=== PATIENT | female | born 1950 | race Caucasian/White ===

== ENCOUNTER 2020-12-15 14:20 | Emergency (ER) | payer MEDICARE, SELFPAY ==
[2020-12-15 14:26] VITALS: BP 151/81; PULSE 94; RESP 20; TEMP 37.2; O2SAT 97
--- NOTE | 2020-12-15 14:46 | ED.WOUNDLAC ---
HPI - Wound/Laceration General Chief Complaint: Wound/Laceration Stated Complaint: wound on leg Time Seen by Provider: 12/15/20 14:35 Source: patient and RN notes reviewed Mode of arrival: ambulatory Limitations: no limitations History of Present Illness HPI narrative: Patient presents today complaining of an infected skin tear to the right lower leg that was sustained on a bed frame approximately 10 days ago. States she has been treating it with Neosporin and Vaseline, but reports it is now warm and red and wanted to come in for evaluation. She has diet-controlled type 2 diabetes. Denies any current pain. She has not been taking any oral medications for symptoms prior to arrival. Denies numbness or tingling in the leg or foot since the injury. Related Data Home Medications Medication Instructions Recorded Confirmed budesonide-formoterol [Symbicort] INHALATION 12/15/20 citalopram mg 12/15/20 esomeprazole magnesium mg 12/15/20 levothyroxine 12/15/20 losartan 12/15/20 metformin mg PO 12/15/20 mycophenolate mofetil PO 12/15/20 simvastatin mg 12/15/20 tiotropium bromide [Spiriva INHALATION 12/15/20 Respimat] Allergies Allergy/AdvReac Type Severity Reaction Status Date / Time No Known Allergies Allergy Unknown Verified 12/15/20 14:24 Review of Systems Review of Systems: Narrative: CONSTITUTIONAL: Denies body aches, fever, chills, or sweats. EYES: Denies visual changes, redness, or discharge. ENT: Denies rhinorrhea, congestion, sore throat, or otalgia. CARDIOVASCULAR: Denies chest pain, palpitations, or edema. RESPIRATORY: Denies cough or dyspnea. GASTROINTESTINAL: Denies abdominal pain, nausea, vomiting, or diarrhea. GENITOURINARY: Denies dysuria or hematuria. SKIN: Denies rash, itching. + Right lower leg wound MUSCULOSKELETAL: Denies back pain, joint pain, or myalgia. NEUROLOGIC: Denies headache, numbness, tingling, or weakness. PSYCH: Denies depression or anxiety. [facility] Past Medical History Medical History (Updated 12/15/20 @ 14:50 by Shanthi Tomas, DIRECTOR OF FUNDRAISING, [place]) COPD (chronic obstructive pulmonary disease) History of acute respiratory failure Hyperlipidemia Hypothyroidism Interstitial pulmonary disease Left bundle branch block Scleroderma Type 2 diabetes mellitus Comments At time of signature, I have reviewed and agree with nursing past medical, surgical, social and family history unless otherwise noted. Please see nursing chart for further information. There is no relevant family history pertinent to the presenting complaint Exam Narrative: Exam Narrative: GENERAL: Well-appearing, well-nourished, and in no acute distress. HEAD: Normocephalic, atraumatic. EYES: EOMI. No redness or drainage. Conjunctivae normal. ENT: Mucous membranes pink and moist. NECK: Normal AROM. CHEST: No respiratory distress. EXTREMITIES: Normal range of motion. No edema. SKIN: Warm, dry, no rash. Capillary refill normal. 7 cm partial-thickness skin tear in a semicircular shape to the anterior right lower leg that is mostly dry. This area is surrounded in erythema very mild edema. Distal sensation intact and capillary refill normal. Pedal pulse normal. Full range of motion of the ankle and knee. No calf tenderness or edema. Increased warmth to the affected area. No active drainage. NEURO: No focal deficits. Alert and oriented x3. Gait steady. PSYCH: Normal affect. No signs of depression or anxiety. Course Vital Signs Vital signs: Vital Signs Temperature 98.9 F 12/15/20 14:26 Pulse Rate 94 12/15/20 14:26 Respiratory Rate 20 12/15/20 14:26 Blood Pressure 151/81 H 12/15/20 14:26 Pulse Oximetry 97 12/15/20 14:26 Temperature 98.9 F 12/15/20 14:26 Pulse Rate 94 12/15/20 14:26 Respiratory Rate 20 12/15/20 14:26 Blood Pressure 151/81 H 12/15/20 14:26 Pulse Oximetry 97 12/15/20 14:26 Reviewed. Pt has been instructed to follow up with her PCP regarding her elevated b
== END 2020-12-15 14:55 | disposition home or self-care (01) ==
PROVIDERS: Emergency Provider Nurse Practitioner; PCP Internal Medicine
DX: L08.9 Local infection of the skin and subcutaneous tissue, unspecified (principal); S81.811A Laceration without foreign body, right lower leg, initial encounter; X58.XXXA Exposure to other specified factors, initial encounter; J44.9 Chronic obstructive pulmonary disease, unspecified; E78.5 Hyperlipidemia, unspecified; E03.9 Hypothyroidism, unspecified; E11.9 Type 2 diabetes mellitus without complications; M34.9 Systemic sclerosis, unspecified
CPT/HCPCS: 99213; G0463

== ENCOUNTER 2021-03-13 15:18 | Emergency (ER) | payer MEDICARE, SELFPAY ==
[2021-03-13 15:35] VITALS: BP 102/54; PULSE 86; RESP 18; O2SAT 97
--- NOTE | 2021-03-13 15:52 | ECG_ITS ---
Measurements Intervals [place] Rate: 85 P: 43 MO: 152 QRS: -48 QRSD: 125 T: 102 QT: 391 QTc: 467 Interpretive Statements SINUS RHYTHM LEFT AXIS DEVIATION LEFT BUNDLE BRANCH BLOCK BASELINE WANDER- I, III, V5-V6 ABNORMAL ECG Electronically Signed On 03-13-2021 19:12:44 CDT by Joshua Ernst D.O.
--- NOTE | 2021-03-13 15:54 | ED.SYNCOPE ---
HPI - Syncope General Chief Complaint: Syncope Stated Complaint: low BP Time Seen by Provider: 03/13/21 15:22 History of Present Illness HPI narrative: 71 yo female w/ h/o scleroderma presents to the ED for syncope and low blood pressure. She reportedly went to urgent care today for concerns about a sore under her tongue and swelling in the submandibular area. While there they noted to her blood pressure to be low. She does report a syncopal episode yesterday. She reports working very hard on cleaning out a house over the past couple of weeks. She says that she may have let herself get dehydrated. No fever, chills, nausea, vomiting. Related Data Home Medications Medication Instructions Recorded Confirmed budesonide-formoterol [Symbicort] 1 puff INHALATION DAILY 12/15/20 12/15/20 citalopram 20 mg PO DAILY 12/15/20 12/15/20 esomeprazole magnesium 40 mg PO DAILY 12/15/20 12/15/20 levothyroxine 88 mcg PO DAILY 12/15/20 12/15/20 losartan 25 mg PO DAILY 12/15/20 12/15/20 metformin 500 mg PO BID 12/15/20 12/15/20 mycophenolate mofetil 2,000 mg PO DAILY 12/15/20 12/15/20 simvastatin 20 mg PO DAILY 12/15/20 12/15/20 tiotropium bromide [Spiriva 1 puff INHALATION DAILY 12/15/20 12/15/20 Respimat] Allergies Allergy/AdvReac Type Severity Reaction Status Date / Time No Known Allergies Allergy Unknown Verified 03/13/21 15:40 Review of Systems Review of Systems: All systems reviewed & are unremarkable except as noted in HPI and below Constitutional: Constitutional: Denies chills, Denies fever(s) and Denies weakness Eyes: Eyes: Reports no additional eye complaints ENT: Denies sore throat Cardiovascular: Cardiovascular: Denies chest pain Respiratory: Respiratory: Denies dyspnea Gastrointestinal: Gastrointestinal: Denies abdominal pain, Denies nausea and Denies vomiting Neurologic: Denies confusion, Reports syncope, Denies headache(s), Denies numbness and Denies weakness PMF Past Medical History Medical History COPD (chronic obstructive pulmonary disease) History of acute respiratory failure Hyperlipidemia Hypothyroidism Interstitial pulmonary disease Left bundle branch block Scleroderma Type 2 diabetes mellitus Social History Social History (Updated 03/13/21 @ 16:40 by Jerome Zambrano MD) Smoking status: Never smoker Exam Const: General: healthy appearing, no acute distress and alert Orientation/consciousness: patient oriented x3 HENMT: Head: normal to inspection Neck: Neck: normal visual inspection and no lymphadenopathy Other: enlarged and tender submandibular gland. Submandibular duct mildly erythematous. Chest: Chest palpation & inspection: no tenderness Resp: Effort & Inspection: normal respiratory effort Auscultation: clear to auscultation bilaterally, no rales, no rhonchi and no wheezes Cardio: Jugular venous distension: no JVD Rate: regular rate Rhythm: regular rhythm Heart sounds: no murmurs GI: Inspection: non-distended GI Palp: Yes Soft to palpation and No Tenderness to palpation present (GI) Skin: General skin exam: normal color Neuro: General: patient oriented x3 and moves all extremities Speech: normal speech Extrem: General: no edema Other: mildly prolonged capillary refill. Psych: Appearance: well kempt Affect: normal affect Course Vital Signs Vital signs: Vital Signs Pulse Rate 86 03/13/21 15:35 Respiratory Rate 18 03/13/21 15:35 Blood Pressure 102/54 L 03/13/21 15:35 Pulse Oximetry 97 03/13/21 15:35 Pulse Rate 78 03/13/21 17:51 Respiratory Rate 20 03/13/21 17:51 Blood Pressure 115/78 03/13/21 17:51 Pulse Oximetry 99 03/13/21 17:51 Procedures Other Procedure Procedure 1: Other Procedure: Sialolithotomy She was given lemon juice to sip. She had some purulent drainage from the left submandibular duct. The gland was then massaged to express the remaining blockag
[2021-03-13 16:15] VITALS: BP 132/60; PULSE 94; RESP 25; O2SAT 96
[2021-03-13 16:16] VITALS: PULSE 91; RESP 18; O2SAT 96
[2021-03-13 16:20] LABS: Basophils Percent Auto 0.2 % (0.2-1.2); Eosinophils Percent Auto 0.2 % (0-4.4); Hematocrit 34.9 % (37.0-47.0); Hemoglobin 10.5 g/dL (12.0-15.0); Immature Granulocyte Absolute 0.07 K/mm3 (0.00-0.031); Immature Granulocyte Percent A 0.5 % (0-0.5); Lymphocytes Absolute Auto 1.16 K/mm3 (0.9-3.2); Lymphocytes Percent Auto 8.8 % (18.3-44.2); Mean Corpuscular HGB Conc 30.1 g/dl (32-36); Mean Corpuscular Hemoglobin 26.8 pg (26-34); Mean Platelet Volume 10.8 fl (7.4-10.4); Monocytes Percent Auto 7.3 % (2.6-8.5); Neutrophils Absolute Auto 10.9 K/mm3 (1.3-6.7); Platelet Count Result 230 k/mm3 (150-375); Red Blood Count 3.92 M/mm3 (4.2-5.4); Red Cell Distribution Width 14.3 % (11.5-14.5); White Blood Count 13.1 K/mm3 (4.5-10.0)
[2021-03-13] MEDS: SODIUM CHLORIDE 0.9% IV 1,000 ML 999 ML IV CONT (16:22)
[2021-03-13 16:29] LABS: Anion Gap 9 mmol/L (8-16); Blood Urea Nitrogen 17 mg/dL (7-17); Calcium 8.4 mg/dL (8.4-10.2); Carbon Dioxide 24 mmol/L (22-30); Chloride 107 mmol/L (98-107); Estimated CRCL calculation 41 ml/min; Estimated Glomerular Filt Rate > 60; Glucose 164 mg/dL (65-105); Potassium 3.9 mmol/L (3.4-5.0); Sodium 140 mmol/L (137-145)
[2021-03-13 16:58] VITALS: BP 126/58; BP 128/59; BP 139/68; PULSE 87; PULSE 88; PULSE 95
--- NOTE | 2021-03-13 17:14 | PC.NURSE ---
ambulated patient to bathroom without difficulty. patient reports no further dizziness of fatigue. states, i feel so much better
[2021-03-13 17:23] LABS: Add Urine Microscopic? YES; Appearance Urine Clear (Clear); Bacteria Urine Trace /hpf; Bilirubin Urine Negative (Negative); Blood Urine Negative (Negative); Color Urine Yellow (Yellow); Glucose Urine UA Negative (Negative); Ketones Urine Negative (Negative); Leukocyte Esterase Ur Trace LEU/UL (Negative); Mucus Urine Rare /lpf; Nitrate Urine Negative (Negative); Protein Urine Negative (Negative); RBC Urine 0-2 /hpf (0-2); Specific Grav Ur 1.012 (1.001-1.035); Squamous Epithelial Cell Urine Occasional /hpf (Few); Urobilinogen Urine Negative mg/dL (<2.0)
[2021-03-13] MEDS: AMOXICILLIN/CLAVULANATE K 875-125 MG TAB 1 TABLET PO (17:45)
[2021-03-13 17:51] VITALS: BP 115/78; PULSE 78; RESP 20; O2SAT 99
== END 2021-03-13 17:53 | disposition home or self-care (01) ==
PROVIDERS: Emergency Provider Emergency Medicine; PCP Internal Medicine
DX: E86.0 Dehydration (principal); K11.5 Sialolithiasis; J44.9 Chronic obstructive pulmonary disease, unspecified; E78.5 Hyperlipidemia, unspecified; E03.9 Hypothyroidism, unspecified; E11.9 Type 2 diabetes mellitus without complications; Z79.84 Long term (current) use of oral hypoglycemic drugs
CPT/HCPCS: 36415; 80048; 81001; 85025; 87077; 87086; 87088; 87186; 93005; 96360; 99284; A9270; J7030

== ENCOUNTER 2024-01-04 08:27 | Emergency (ER) | payer MEDICARE, SELFPAY ==
[2024-01-04 08:35] VITALS: BP 176/72; PULSE 75; RESP 18; TEMP 36.6; O2SAT 96
--- NOTE | 2024-01-04 09:22 | ED.EXTPRO ---
HPI - Extremity Problem General Chief complaint: Extremity Problem,Nontraumatic Stated complaint: left hand pain Time Seen by Provider: 01/04/24 09:07 Source: patient Mode of arrival: ambulatory Limitations: no limitations History of Present Illness HPI Narrative: This is a 73-year-old female that presents to the emergency department for left hand pain. Reports she has had a cyst on the left hand for a while. Over the last 2 days the area has become red and painful. She has not seen a doctor for this before. Denies fevers, decreased ROM or numbness. Related Data Home Medications Medication Instructions Recorded Confirmed budesonide-formoterol HFA 160 1 puff inhalation DAILY 12/15/20 12/15/20 mcg-4.5 mcg/actuation aerosol inhaler (Symbicort) citalopram 20 mg tablet 20 mg PO DAILY 12/15/20 12/15/20 esomeprazole magnesium 40 mg 40 mg PO DAILY 12/15/20 12/15/20 capsule,delayed release levothyroxine 88 mcg tablet 88 mcg PO DAILY 12/15/20 12/15/20 losartan 25 mg tablet 25 mg PO DAILY 12/15/20 12/15/20 metformin 500 mg tablet,extended 500 mg PO BID 12/15/20 12/15/20 release 24 hr mycophenolate mofetil 500 mg tablet 2,000 mg PO DAILY 12/15/20 12/15/20 simvastatin 20 mg tablet 20 mg PO DAILY 12/15/20 12/15/20 tiotropium bromide 2.5 1 puff inhalation DAILY 12/15/20 12/15/20 mcg/actuation mist for inhalation (Spiriva Respimat) Allergies Allergy/AdvReac Type Severity Reaction Status Date / Time No Known Allergies Allergy Unknown Verified 01/04/24 08:28 Review of Systems Review of Systems: CONSTITUTIONAL: Denies fever SKIN: Reports redness MUSCULOSKELETAL: Denies joint pain, or myalgia. NEUROLOGIC: Denies numbness All systems reviewed & are unremarkable except as noted in HPI and below PMFSH Past Medical History Medical History COPD (chronic obstructive pulmonary disease) History of acute respiratory failure Hyperlipidemia Hypothyroidism Interstitial pulmonary disease Left bundle branch block Scleroderma Type 2 diabetes mellitus Social History Social History (Updated 03/13/21 @ 16:40 by Jerome Zambrano MD) Smoking status: Never smoker Exam Narrative: GENERAL: Well-appearing, well-nourished, and in no acute distress. HEAD: Normocephalic, atraumatic. EYES: EOMI. EXTREMITIES: Normal range of motion. Small, mobile cyst on the palmar aspect of the hand with mild overlying redness. No lymphangitic streaking or further edema or erythema of the hand. SKIN: Warm, dry, no rash. NEURO: No focal deficits. Alert and oriented x3. PSYCH: Normal mood and affect Course Course Emergency Course: patient agrees with plan of care Vital Signs Vital signs: Vital Signs Temperature 97.9 F 01/04/24 08:35 Pulse Rate 75 01/04/24 08:35 Respiratory Rate 18 01/04/24 08:35 Blood Pressure 176/72 H 01/04/24 08:35 Pulse Oximetry 96 01/04/24 08:35 Oxygen Delivery Room Air 01/04/24 08:35 Temperature 97.9 F 01/04/24 08:35 Pulse Rate 75 01/04/24 08:35 Respiratory Rate 18 01/04/24 08:35 Blood Pressure 176/72 H 01/04/24 08:35 Pulse Oximetry 96 01/04/24 08:35 Oxygen Delivery Room Air 01/04/24 08:35 MDM - Extremity (Nontraumatic) MDM Narrative Medical decision making narrative: Patient presents to the emergency department for a cyst to the left hand that has been present for some time. Reports over the last couple of days it has become red and painful. She is afebrile and nontoxic appearing. She is neurovascularly intact. There is what on exam seems to be a ganglion cyst that is mildly red and tender to palpation. No lymphangitic streaking or further edema or erythema of the hand. Will be started on scheduled anti-inflammatories and an antibiotic. Will be given follow-up with Hand surgery. She was given warnings to return to the ER Differential Diagnosis Differential diagnosis: Likely cellulitis, s
[2024-01-04] MEDS: KETOROLAC 30 MG/ML VIAL (*BKC) IM (09:48)
== END 2024-01-04 09:59 | disposition home or self-care (01) ==
PROVIDERS: Emergency Provider Physician Assistant; PCP Internal Medicine
DX: L72.9 Follicular cyst of the skin and subcutaneous tissue, unspecified (principal); E78.5 Hyperlipidemia, unspecified; E03.9 Hypothyroidism, unspecified; E11.9 Type 2 diabetes mellitus without complications
CPT/HCPCS: 96372; 99283; J1885

== ENCOUNTER 2024-06-21 15:41 | Emergency (ER) | payer MEDICARE, SELFPAY ==
[2024-06-21 15:44] VITALS: BP 115/63; PULSE 86; RESP 16; TEMP 36.7; O2SAT 97
--- NOTE | 2024-06-21 16:50 | PC.NURSE ---
Pt states she is unable to wait any more and that she will be leaving. Pt ambulated to exit using steady gait, NAD noted
== END 2024-06-21 17:13 | disposition left against medical advice (07) ==
LOC: ANHED 16:56
PROVIDERS: PCP Internal Medicine
DX: S09.90XA Unspecified injury of head, initial encounter (principal); W21.02XA Struck by soccer ball, initial encounter
CPT/HCPCS: 99199